=== PATIENT | male | born 1975 | race African-American/Black ===

== ENCOUNTER 2017-08-02 07:55 | Inpatient (IN) | payer OTHER ==
[~2017-08-02] VITALS: Ht 175.3 cm; Wt 136.1 kg
[~2017-08-02 07:55] MED LIST: ABILIFY5 MG PO; CITALOPRAM HBR20 MG PO; HUMALOG100 UNITS/ SC; LANTUS100 UNITS/ SC; LISINOPRIL10 MG PO; METFORMIN HCL500 MG PO
--- OUTSIDE RECORDS SUMMARY | 2017-08-02 07:58 | XMS REPORT | Clinical Summary ---
Author Author [facility] Address Unknown Phone Unavailable Care Team Providers Care Beam Builder Name Role Phone Meng Price MD PCP Unavailable Allergies Active Allergy Reactions Severity Noted Date Comments Rivaroxaban 03/28/2017 Current Medications Prescription Sig. Disp. Refills Start End Date Status Date cefdinir (OMNICEF) 300 MG Take 1 capsule (300 mg 6 capsule 0 03/28/20 03/31/20 capsule total) by mouth 2 (two) 17 17 times a day for 3 days. cefdinir (OMNICEF) 300 MG Take 1 capsule (300 mg 20 capsule 0 04/26/19 capsule total) by mouth 2 (two) 17 18 times a day for 10 days. tamsulosin (FLOMAX) 0.4 Take 1 capsule (0.4 mg 7 capsule 0 04/18/20 04/25/19 mg capsule,extended total) by mouth daily for 17 18 release 24hr 7 days. Active Problems Not on file Encounters Date Type Specialty Care Team Description 04/18/2017 Emergency Emergency Medicine Rehrer, Kasi Fournier, Urinary retention (Primary Dx); Hypertension, unspecified type 04/16/2017 Emergency Emergency Medicine Adams Tabor, Acute urinary retention DO (Primary Dx); Essential hypertension; Type 2 diabetes mellitus with hyperglycemia, unspecified mcfp insulin use status; Urinary tract infection in male 03/28/2017 Emergency Emergency Medicine Stephen Sutherland MD Acute cystitis with hematuria (Primary Dx); Hypertensive emergency; Dysuria; Urine retention; Controlled type 2 diabetes mellitus with other specified complication, without long-term current use of insulin; Dehydration; Lower abdominal pain; Tachycardia; Tobacco abuse after 08/01/2016 Social History Tobacco Use Types Packs/Day Years Used Date Current Every Day Smoker Cigarettes Smokeless Tobacco: Never Used Alcohol Use Drinks/Week oz/Week Comments Yes "once or twice a year" Sex Assigned at Date Recorded Not on file Last Filed Vital Signs Vital Sign Reading Time Taken Blood Pressure 189/100 04/18/2017 2:41 PM [employer] Pulse 99 04/18/2017 2:41 PM [employer] Temperature 35.6 C (96.1 F) 04/18/2017 2:41 PM [employer] Respiratory Rate 20 04/18/2017 2:41 PM [employer] Oxygen Saturation 97% 04/18/2017 2:41 PM [employer] Inhaled Oxygen - - Concentration Weight - - Height 177.8 cm (5' 10") 04/18/2017 10:56 AM [employer] Body Mass Index - - Plan of Treatment Health Maintenance Due Date Last Done Comments FOOT EXAM 12/11/1983 OPHTHALMOLOGY EXAM 12/11/1983 URINE MICROALBUMIN 12/11/1983 INFLUENZA VACCINE 11/18/2017 Results * Gram stain (04/18/2017 1:37 PM) Only the most recent of 3 results within the time period is included. Component Value Ref Range Gram stain result Few WBC's No organisms seen Comment: Specimen Information Specimen Source: Urine Specimen Site: See UA Specimen Performing Laboratory Urine [facility] DEPARTMENT OF PATHOLOGY AND GENOMIC MEDICINE [address] [place] [address] * Urine culture (04/18/2017 1:37 PM) Only the most recent of 3 results within the time period is included. Component Value Ref Range Urine culture isolate Mixed Gram positive zen 10-3 cfu/ml (A) Comment: Specimen Information Specimen Source: Urine Specimen Site: See UA Specimen Performing Laboratory Urine [facility] DEPARTMENT OF PATHOLOGY AND GENOMIC MEDICINE [address] [place] [address] * Urinalysis screen and microscopy, with reflex to culture (04/18/2017 12:48 PM) Only the most recent of 3 results within the time period is included. Component Value Ref Range Specimen site Catheterized Color, UA Yellow Appearance, UA Clear Specific gravity, UA 1.023 1.001 - 1.035 pH, UA 7.0 5.0 - 8.5 Protein, UA Negative Negative Glucose, UA 3+ (A) Negative Ketones, UA Negative Negative Bilirubin, UA Negative Negative Blood, UA Negative Negative Nitrite, UA Negative Negative Urobilinogen, UA <2.0 <2.0 Leukocyte esterase, UA Trace (A) Negative Epithelial cells, UA 3 /HPF WBC, UA 16 (H) 0 - 1 /HPF RBC, UA 1 0 - 1 /HPF Bacteria, UA Few None seen Yeast, UA None seen Yeast with pseudohyphae, None seen UA Specimen Performing Laboratory Urine [facility] DEPARTMENT OF PATHOLOGY AND GENOMIC MEDICINE [address] [place] [address] * Estimated GFR (04/18/2017 12:10 PM) Only the most recent of 3 results within the time period is included. Component Value Ref Range GFR Non Af Amer >90 mL/min/1.73 m2 GFR Af Amer >90 mL/min/1.73 m2 Comment: Chronic kidney disease: <60 mL/min/1.73m2 Kidney failure: <15 mL/min/1.73m2 The estimated GFR is calculated from the IDMS-traceable Modification of Diet in Renal Disease Equation. The accuracy of the calculation is poor when the creatinine is normal. Calculated values >90 mL/min/1.73m2 are not reported. This equation has not been validated in children (<18 years), women, the elderly (>70 years), or ethnic groups other than Caucasians and Americans. Specimen Performing Laboratory Plasma specimen [facility] DEPARTMENT OF PATHOLOGY AND GENOMIC MEDICINE [address] [place] [address] * CBC with platelet and differential (04/18/2017 12:10 PM) Only the most recent of 3 results within the time period is included. Component Value Ref Range WBC 8.04 4.50 - 11.00 k/uL RBC 4.56 4.40 - 6.00 m/uL HGB 12.9 (L) 14.0 - 18.0 g/dL HCT 39.6 (L) 41.0 - 51.0 % MCV 86.8 82.0 - 100.0 fL MCH 28.3 27.0 - 34.0 pg MCHC 32.6 31.0 - 37.0 g/dL RDW - SD 41.4 37.0 - 55.0 fL MPV 10.4 8.8 - 13.2 fL Platelet count 257 150 - 400 k/uL Nucleated RBC 0.00 /100 WBC Neutrophils 54.3 39.0 - 69.0 % Lymphocytes 31.8 25.0 - 45.0 % Monocytes 9.5 0.0 - 10.0 % Eosinophils 3.7 0.0 - 5.0 % Basophils 0.5 0.0 - 1.0 % Immature granulocytes 0.2Comment: "Immature granulocytes" 0.0 - 1.0 % (promyelocytes, myelocytes, metamyelocytes) Specimen Performing Laboratory Blood [facility] DEPARTMENT OF PATHOLOGY AND GENOMIC MEDICINE [address] [place] [address] * Basic metabolic panel (04/18/2017 12:10 PM) Component Value Ref Range Sodium 142 135 - 148 mEq/L Potassium 4.1 3.5 - 5.0 mEq/L Chloride 100 98 - 112 mEq/L CO2 28 24 - 31 mEq/L Anion gap 14 7 - 15 mEq/L Comment: Starting from July , anion gap calculation no longer incorporates potassium. Please note the change. BUN 12 6 - 20 mg/dL Creatinine 0.8 0.7 - 1.2 mg/dL Glucose 79 65 - 99 mg/dL Calcium 9.5 8.3 - 10.2 mg/dL Specimen Performing Laboratory Plasma specimen [facility] DEPARTMENT OF PATHOLOGY AND GENOMIC MEDICINE [address] [place] [address] * POC glucose (04/16/2017 5:53 AM) Only the most recent of 2 results within the time period is included. Component Value Ref Range POC glucose 214 (H) 65 - 99 mg/dL Comment: [facility] Notified RN Meter ID: [id number] Outside Sales: Andrey Hartdante Specimen Performing Laboratory Blood [facility] DEPARTMENT OF PATHOLOGY AND GENOMIC MEDICINE [address] [place] [address] * Troponin (04/16/2017 1:25 AM) Component Value Ref Range Troponin <0.30 0.00 - 0.30 ng/mL Comment: 0.30 - 1.49 ng/ml May indicate increased risk of acute coronary syndrome. >=1.5 ng/ml Consistent with acute myocardial infarction. The diagnostic value of a single normal or non-diagnostic result is questionable. Serial samples at 2-6 hour intervals are required to rule out acute myocardial injury. Specimen Performing Laboratory Plasma specimen [facility] DEPARTMENT OF PATHOLOGY AND GENOMIC MEDICINE [address] [place] [address] Narrative ___GLU_ results called to and read back by KENIA LOVETT\\ER(name/location) at ____ 04/16/201703:10 ___ (date/time) by LSB_. * Partial thromboplastin time, activated (04/16/2017 1:25 AM) Only the most recent of 2 results within the time period is included. Component Value Ref Range PTT 30.2 23.0 - 36.0 sec Comment: PTT therapeutic range for unfractionated heparin is 61.0-112.0 seconds which corresponds to Anti-Xa 0.3-0.7 U/ml. Specimen Performing Laboratory Blood [facility] DEPARTMENT OF PATHOLOGY AND GENOMIC MEDICINE [address] [place] [address] * Prothrombin time with INR (04/16/2017 1:25 AM) Only the most recent of 2 results within the time period is included. Component Value Ref Range Prothrombin time 12.5 12.0 - 15.0 sec INR 0.9 Comment: The International Normalized Ratio (INR) is a therapeutic monitoring tool for patients who are stable on oral anticoagulant therapy. An INR of 2.0-3.0 is suggested for deep vein thrombosis/pulmonary embolism. Specimen Performing Laboratory Blood [facility] DEPARTMENT OF PATHOLOGY AND GENOMIC MEDICINE [address] [place] [address] * B natriuretic peptide (04/16/2017 1:25 AM) Component Value Ref Range BNP 39 0 - 100 pg/mL Specimen Performing Laboratory Blood [facility] DEPARTMENT OF PATHOLOGY AND [facility] MEDICINE [address] [place] [address] * Comprehensive metabolic panel (04/16/2017 1:25 AM) Only the most recent of 2 results within the time period is included. Component Value Ref Range Sodium 136 135 - 148 mEq/L Potassium 4.2 3.5 - 5.0 mEq/L Chloride 98 98 - 112 mEq/L CO2 22 (L) 24 - 31 mEq/L Anion gap 16 (H) 7 - 15 mEq/L Comment: Starting from July , anion gap calculation no longer incorporates potassium. Please note the change. BUN 14 6 - 20 mg/dL Creatinine 1.0 0.7 - 1.2 mg/dL Glucose 526 (HH) 65 - 99 mg/dL Calcium 9.0 8.3 - 10.2 mg/dL Protein 7.1 6.3 - 8.3 g/dL Comment: 4.6-7.0 g/dL 1 week 4.4-7.6 g/dL 7 months-1year 5.1-7.3 g/dL 1-2 years 5.6-7.5 g/dL >3 years 6.0-8.0 g/dL 18-150 6.3-8.3 g/dL Albumin 3.3 (L) 3.5 - 5.0 g/dL A/G ratio 0.9 0.7 - 3.8 Alkaline phosphatase 108 40 - 129 U/L AST 25 10 - 50 U/L ALT 29 5 - 50 U/L Total bilirubin <0.2 0.0 - 1.2 mg/dL Specimen Performing Laboratory Plasma specimen [facility] DEPARTMENT OF PATHOLOGY AND GENOMIC MEDICINE [address] [place] [address] * GC By ProbeTec (03/28/2017 11:15 AM) Component Value Ref Range GC, ProbeTec Negative for Neisseria gonorrhoeae. Comment: Specimen Information Specimen Source: Urine Specimen Site: Midstream [facility] DEPARTMENT [place] [address] * Chlamydia by ProbeTec (03/28/2017 11:15 AM) Component Value Ref Range Chlamydia, ProbeTec Negative for Chlamydia trachomatis. Comment: Specimen Information Specimen Source: Urine Specimen Site: Midstream Specimen Performing [facility] DEPARTMENT OF PATHOLOGY AND [facility] MEDICINE [address] [place] [address] * CT Renal Stone Protocol (03/28/2017 10:20 AM) Specimen Performing [facility] [address] [place] [address] Narrative EXAMINATION:CT RENAL STONE PROTOCOL CLINICAL HISTORY:urinary retention and pain and hx of nephrolithiasis TECHNIQUE:Multiple axial images of the abdomen and pelvis were obtained without intravenous administration of iodinated contrast. Sagittal and coronal computerized reformatted images were also obtained. The lack of intravenous contrast reduces the sensitivity of detecting solid organ disease. COMPARISON:None. IMPRESSION: 1.Both kidneys are normal in morphology. There is no evidence of hydronephrosis or nephrolithiasis. The ureters and bladder are unremarkable. No bladder distention or wall thickening. No stones are seen within the bladder. The prostate is unremarkable. 2.No dilated loops of large or small bowel. No intraperitoneal free air or free fluid. The appendix is normal. 3.A calcified granuloma seen within the right lung base. Lung bases are otherwise clear. The cardiac size is normal. No pericardial effusion. 4.Mild fatty infiltration of the liver is noted. Remaining noncontrast evaluation of the liver is grossly unremarkable. The gallbladder is unremarkable. No gallstones are seen. Common bile duct is unremarkable. 5.The pancreas, spleen, and adrenals are unremarkable. 6.The abdominal aorta is normal in caliber. 7.No abdominal or pelvic lymphadenopathy. 8.The bones are unremarkable. All CT images were acquired using low-dose technique with automated exposure control and/or iterative reconstruction. [id number] Procedure Note [facility], Radiology Results Incoming - 03/28/2017 10:26 AM [employer] EXAMINATION: CT RENAL STONE PROTOCOL CLINICAL HISTORY: urinary retention and pain and hx of nephrolithiasis TECHNIQUE: Multiple axial images of the abdomen and pelvis were obtained without intravenous administration of iodinated contrast. Sagittal and coronal computerized reformatted images were also obtained. The lack of intravenous contrast reduces the sensitivity of detecting solid organ disease. COMPARISON: None. IMPRESSION: 1. Both kidneys are normal in morphology. There is no evidence of hydronephrosis or nephrolithiasis. The ureters and bladder are unremarkable. No bladder distention or wall thickening. No stones are seen within the bladder. The prostate is unremarkable. 2. No dilated loops of large or small bowel. No intraperitoneal free air or free fluid. The appendix is normal. 3. A calcified granuloma seen within the right lung base. Lung bases are otherwise clear. The cardiac size is normal. No pericardial effusion. 4. Mild fatty infiltration of the liver is noted. Remaining noncontrast evaluation of the liver is grossly unremarkable. The gallbladder is unremarkable. No gallstones are seen. Common bile duct is unremarkable. 5. The pancreas, spleen, and adrenals are unremarkable. 6. The abdominal aorta is normal in caliber. 7. No abdominal or pelvic lymphadenopathy. 8. The bones are unremarkable. All CT images were acquired using low-dose technique with automated exposure control and/or iterative reconstruction. [facility]-[id number] * Magnesium level (03/28/2017 9:50 AM) Component Value Ref Range Magnesium 1.8 1.6 - 2.6 mg/dL Specimen Performing Laboratory Plasma specimen [facility] DEPARTMENT OF PATHOLOGY AND GENOMIC MEDICINE [address] [place] [address] after 08/01/2016 Insurance Payer Benefit Subscriber ID Type Phone Address Plan / Group AETNA AETNA xxxxxxxxxx HMO HMO,POS,EP O, MC/EC Home: [address] [place], [place] [phone] [place] [address]
--- OUTSIDE RECORDS SUMMARY | 2017-08-02 09:31 | XMS REPORT | Clinical Summary ---
Author Author [facility] Address Unknown Phone Unavailable Care Team Providers Care Fox Raiser Name Role Phone Meng Price MD PCP [...] Type 2 diabetes mellitus with hyperglycemia, unspecified senior care insulin use status; Urinary tract infection in [...] Taken Blood Pressure 189/100 04/18/2017 2:41 PM [employer] Pulse 99 04/18/2017 2:41 PM [employer] Temperature 35.6 C (96.1 F) 04/18/2017 2:41 PM [employer] Respiratory Rate 20 04/18/2017 2:41 PM [employer] Oxygen Saturation 97% 04/18/2017 2:41 PM [employer] Inhaled Oxygen - - Concentration Weight - - Height 177.8 cm (5' 10") 04/18/2017 10:56 AM [employer] Body Mass Index - - Plan of [...] Site: See UA Specimen Performing Laboratory Urine [facility] DEPARTMENT OF PATHOLOGY AND GENOMIC MEDICINE [address] [place] [address] * Urine culture (04/18/2017 1:37 PM) Only the most recent of 3 results within the time period is included. Component Value Ref Range Urine culture isolate Mixed Gram positive zen 10-3 cfu/ml (A) Comment: Specimen Information Specimen Source: Urine Specimen Site: See UA Specimen Performing Laboratory Urine [facility] DEPARTMENT OF PATHOLOGY AND GENOMIC MEDICINE [address] [place] [address] * Urinalysis screen and microscopy, with reflex [...] None seen UA Specimen Performing Laboratory Urine [facility] DEPARTMENT OF PATHOLOGY AND GENOMIC MEDICINE [address] [place] [address] * Estimated GFR (04/18/2017 12:10 PM) Only [...] and Americans. Specimen Performing Laboratory Plasma specimen [facility] DEPARTMENT OF PATHOLOGY AND GENOMIC MEDICINE [address] [place] [address] * CBC with platelet and differential (04/18/2017 [...] (promyelocytes, myelocytes, metamyelocytes) Specimen Performing Laboratory Blood [facility] DEPARTMENT OF PATHOLOGY AND GENOMIC MEDICINE [address] [place] [address] * Basic metabolic panel (04/18/2017 12:10 PM) [...] 10.2 mg/dL Specimen Performing Laboratory Plasma specimen [facility] DEPARTMENT OF PATHOLOGY AND GENOMIC MEDICINE [address] [place] [address] * POC glucose (04/16/2017 5:53 AM) Only the most recent of 2 results within the time period is included. Component Value Ref Range POC glucose 214 (H) 65 - 99 mg/dL Comment: [facility] Notified RN Meter ID: [id number] Mold Capper: Andrey Hartdante Specimen Performing Laboratory Blood [facility] DEPARTMENT OF PATHOLOGY AND GENOMIC MEDICINE [address] [place] [address] * Troponin (04/16/2017 1:25 AM) Component Value [...] myocardial injury. Specimen Performing Laboratory Plasma specimen [facility] DEPARTMENT OF PATHOLOGY AND GENOMIC MEDICINE [address] [place] [address] Narrative ___GLU_ results called to and read [...] Anti-Xa 0.3-0.7 U/ml. Specimen Performing Laboratory Blood [facility] DEPARTMENT OF PATHOLOGY AND GENOMIC MEDICINE [address] [place] [address] * Prothrombin time with INR (04/16/2017 1:25 [...] vein thrombosis/pulmonary embolism. Specimen Performing Laboratory Blood [facility] DEPARTMENT OF PATHOLOGY AND GENOMIC MEDICINE [address] [place] [address] * B natriuretic peptide (04/16/2017 1:25 AM) Component Value Ref Range BNP 39 0 - 100 pg/mL Specimen Performing Laboratory Blood [facility] DEPARTMENT OF PATHOLOGY AND [facility] MEDICINE [address] [place] [address] * Comprehensive metabolic panel (04/16/2017 1:25 AM) [...] 1.2 mg/dL Specimen Performing Laboratory Plasma specimen [facility] DEPARTMENT OF PATHOLOGY AND GENOMIC MEDICINE [address] [place] [address] * GC By ProbeTec (03/28/2017 11:15 AM) Component Value Ref Range GC, ProbeTec Negative for Neisseria gonorrhoeae. Comment: Specimen Information Specimen Source: Urine Specimen Site: Midstream [facility] [place] [address] * Chlamydia by ProbeTec (03/28/2017 11:15 AM) Component Value Ref Range Chlamydia, ProbeTec Negative for Chlamydia trachomatis. Comment: Specimen Information Specimen Source: Urine Specimen Site: Midstream [facility] DEPARTMENT OF PATHOLOGY AND [facility] MEDICINE [address] [place] [address] * CT Renal Stone Protocol (03/28/2017 10:20 AM) Specimen Performing Laboratory [facility] [address] [place] [address] Narrative EXAMINATION:CT RENAL STONE PROTOCOL CLINICAL HISTORY:urinary [...] with automated exposure control and/or iterative reconstruction. [id number] Procedure Note [facility], Radiology Results Incoming - 03/28/2017 10:26 AM [employer] EXAMINATION: CT RENAL STONE PROTOCOL CLINICAL HISTORY: [...] with automated exposure control and/or iterative reconstruction. [facility]-[id number] * Magnesium level (03/28/2017 9:50 AM) Component Value Ref Range Magnesium 1.8 1.6 - 2.6 mg/dL Specimen Performing Laboratory Plasma specimen [facility] DEPARTMENT OF PATHOLOGY AND GENOMIC MEDICINE [address] [place] [address] after 08/01/2016 Insurance Payer Benefit Subscriber ID Type Phone Address Plan / Group AETNA AETNA xxxxxxxxxx HMO HMO,POS,EP O, MC/EC Home: [address] [place], [place] [phone] [place] [address]
[2017-08-02 10:07] LABS: BASOPHILS # (AUTO) 0.1 (0.0-0.1); BASOPHILS % 0.6 % (0.0-1.0); EOSINOPHILS # (AUTO) 0.3 (0.0-0.4); EOSINOPHILS % 3.7 % (0.0-6.0); HEMATOCRIT 40.8 % (38.2-49.6); HEMOGLOBIN 13.6 g/dL (14.0-18.0); LYMPHOCYTES # (AUTO) 1.8 (1.0-3.2); LYMPHOCYTES % 20.9 % (18.0-39.1); MEAN CORPUSCULAR HEMOGLOBIN 28.6 pg (28-32); MEAN CORPUSCULAR HGB CONC 33.3 g/dL (31-35); MEAN CORPUSCULAR VOLUME 85.7 fL (81-99); MONOCYTES # (AUTO) 0.5 (0.2-0.8); NEUTROPHILS # (AUTO) 5.9 (2.1-6.9); NEUTROPHILS % 68.4 % (38.7-80.0); PLATELET COUNT 247 x10e3/uL (140-360); RED BLOOD COUNT 4.76 x10e6/uL (4.3-5.7); RED CELL DISTRIBUTION WIDTH 13.1 % (11.7-14.4)
[2017-08-02 10:19] LABS: INR 1.05; PROTHROMBIN TIME 12.9 seconds (11.9-14.5)
[2017-08-02 10:20] LABS: PARTIAL THROMBOPLASTIN TIME 31.7 seconds (23.8-35.5)
[2017-08-02 10:23] LABS: ANION GAP 16.8 mmol/L (8-16); BLOOD UREA NITROGEN 14 mg/dL (7-26); BUN/CREATININE RATIO 14 (6-25); CALCIUM 8.9 mg/dL (8.4-10.2); CARBON DIOXIDE 25 mmol/L (22-29); CHLORIDE 99 mmol/L (98-107); CREATININE, SERUM 1.01 mg/dL (0.72-1.25); EST GLOMERULAR FILTRATION RATE > 60 ML/MIN (60-); GLUCOSE 125 mg/dL (74-118); POTASSIUM 4.8 mmol/L (3.5-5.1); SODIUM 136 mmol/L (136-145)
[2017-08-02 10:39] LABS: CLARITY,URINE SL CLOUDY (CLEAR); COLOR,URINE YELLOW (YELLOW)
[2017-08-02 10:40] LABS: BILIRUBIN,URINE NEGATIVE (NEGATIVE); KETONES,URINE NEGATIVE (NEGATIVE); LEUKOCYTE ESTERASE ,URINE TRACE (NEGATIVE); NITRITE,URINE NEGATIVE (NEGATIVE); PROTEIN,URINE DIPSTICK NEGATIVE (NEGATIVE); URINE UROBILINOGEN 0.2 mg/dL (0.2 - 1)
[2017-08-02 10:41] LABS: BACTERIA,URINE MODERATE /HPF; EPITHELIAL CELLS,URINE FEW /LPF; RBC,URINE 21-50 /HPF (0-5)
[2017-08-02] MEDS ORDERED: SODIUM CHLORIDE FLUSH 10 ML SYR INJ PRN (11:30)
[2017-08-02] MEDS: CEFTRIAXONE SOD 1 GM VIAL IV SCH (11:30)
--- OUTSIDE RECORDS SUMMARY | 2017-08-02 11:46 | XMS REPORT | Clinical Summary ---
Author Author [facility] Address Unknown Phone Unavailable Care Team Providers Care Insurance Marketing Rep Name Role Phone Meng Price MD PCP [...] Type 2 diabetes mellitus with hyperglycemia, unspecified jail insulin use status; Urinary tract infection in [...] Taken Blood Pressure 189/100 04/18/2017 2:41 PM DAY TRADER Pulse 99 04/18/2017 2:41 PM DAY TRADER Temperature 35.6 C (96.1 F) 04/18/2017 2:41 PM DAY TRADER Respiratory Rate 20 04/18/2017 2:41 PM DAY TRADER Oxygen Saturation 97% 04/18/2017 2:41 PM DAY TRADER Inhaled Oxygen - - Concentration Weight - - Height 177.8 cm (5' 10") 04/18/2017 10:56 AM DAY TRADER Body Mass Index - - Plan of [...] Site: See UA Specimen Performing Laboratory Urine [facility] DEPARTMENT OF PATHOLOGY AND GENOMIC MEDICINE [address] [place] [address] * Urine culture (04/18/2017 1:37 PM) Only the most recent of 3 results within the time period is included. Component Value Ref Range Urine culture isolate Mixed Gram positive zen 10-3 cfu/ml (A) Comment: Specimen Information Specimen Source: Urine Specimen Site: See UA Specimen Performing Laboratory Urine [facility] DEPARTMENT OF PATHOLOGY AND GENOMIC MEDICINE [address] [place] [address] * Urinalysis screen and microscopy, with reflex [...] None seen UA Specimen Performing Laboratory Urine [facility] DEPARTMENT OF PATHOLOGY AND GENOMIC MEDICINE [address] [place] [address] * Estimated GFR (04/18/2017 12:10 PM) Only [...] and Americans. Specimen Performing Laboratory Plasma specimen [facility] DEPARTMENT OF PATHOLOGY AND GENOMIC MEDICINE [address] [place] [id number] * CBC with platelet and differential (04/18/2017 [...] (promyelocytes, myelocytes, metamyelocytes) Specimen Performing Laboratory Blood [facility] DEPARTMENT OF PATHOLOGY AND GENOMIC MEDICINE [address] [place] [address] * Basic metabolic panel (04/18/2017 12:10 PM) [...] 10.2 mg/dL Specimen Performing Laboratory Plasma specimen [facility] DEPARTMENT OF PATHOLOGY AND GENOMIC MEDICINE [address] [place] [address] * POC glucose (04/16/2017 5:53 AM) Only the most recent of 2 results within the time period is included. Component Value Ref Range POC glucose 214 (H) 65 - 99 mg/dL Comment: [facility], [facility] Notified RN Meter ID: [id number] Stereotype Finisher: Andrey Hartdante Specimen Performing Laboratory Blood [facility] DEPARTMENT OF PATHOLOGY AND GENOMIC MEDICINE [address] [place] [address] * Troponin (04/16/2017 1:25 AM) Component Value [...] myocardial injury. Specimen Performing Laboratory Plasma specimen [facility] DEPARTMENT OF PATHOLOGY AND GENOMIC MEDICINE [address] [place] [address] Narrative ___GLU_ results called to and read [...] Anti-Xa 0.3-0.7 U/ml. Specimen Performing Laboratory Blood [facility] DEPARTMENT OF PATHOLOGY AND GENOMIC MEDICINE [address] [place] [id number] * Prothrombin time with INR (04/16/2017 1:25 [...] vein thrombosis/pulmonary embolism. Specimen Performing Laboratory Blood [facility] DEPARTMENT OF PATHOLOGY AND GENOMIC MEDICINE [address] [place] [id number] * B natriuretic peptide (04/16/2017 1:25 AM) Component Value Ref Range BNP 39 0 - 100 pg/mL Specimen Performing Laboratory Blood [facility] DEPARTMENT OF PATHOLOGY AND [facility] [address] [place] [id number] * Comprehensive metabolic panel (04/16/2017 1:25 AM) [...] 1.2 mg/dL Specimen Performing Laboratory Plasma specimen [facility] DEPARTMENT OF PATHOLOGY AND GENOMIC MEDICINE [address] [place] [address] * GC By [employer] (03/28/2017 11:15 AM) Component Value Ref Range GC, [employer] Negative for Neisseria gonorrhoeae. Comment: Specimen Information Specimen Source: Urine Specimen Site: Midstream [facility] [place] [address] * Chlamydia by [employer] (03/28/2017 11:15 AM) Component Value Ref Range Chlamydia, [employer] Negative for Chlamydia trachomatis. Comment: Specimen Information Specimen Source: Urine Specimen Site: Midstream [facility]forming [facility] DEPARTMENT OF PATHOLOGY AND [facility] [address] [place] [address] * CT Renal Stone Protocol (03/28/2017 10:20 AM) Specimen Performing [facility] [address] [place] [address] Narrative EXAMINATION:CT RENAL STONE PROTOCOL CLINICAL HISTORY:urinary [...] with automated exposure control and/or iterative reconstruction. [id number] Procedure Note [facility], Radiology Results Incoming - 03/28/2017 10:26 AM DAY TRADER EXAMINATION: CT RENAL STONE PROTOCOL CLINICAL HISTORY: [...] with automated exposure control and/or iterative reconstruction. [id number] * Magnesium level (03/28/2017 9:50 AM) Component Value Ref Range Magnesium 1.8 1.6 - 2.6 mg/dL Specimen Performing Laboratory Plasma specimen [facility] DEPARTMENT OF PATHOLOGY AND GENOMIC MEDICINE [address] [place] [address] after 08/01/2016 Insurance Payer Benefit Subscriber ID Type Phone Address Plan / Group AETNA AETNA xxxxxxxxxx HMO HMO,[id number] O, MC/EC Home: [address] [place], [place] [phone] [place] [address]
[2017-08-02] MEDS ORDERED: SERTRALINE HCL50 MG (15:50)
[2017-08-02] MEDS ORDERED: LISINOPRIL40 MG (15:50)
[2017-08-02] MEDS ORDERED: CRESTOR40 MG (15:50)
[2017-08-02] MEDS ORDERED: VITAMIN D250000 UNIT (15:50)
[2017-08-02] MEDS ORDERED: DIVALPROEX SOD125 M1 (15:50)
[2017-08-02] MEDS ORDERED: LOSARTAN-HCTZ1 EAC1 (15:50)
[2017-08-02] MEDS ORDERED: TAMSULOSIN HCL0.4 MG (15:50)
[2017-08-02] MEDS ORDERED: BASAGLAR (15:50)
[2017-08-02] MEDS ORDERED: METFORMIN HCL1000 MG (15:50)
[2017-08-02] MEDS ORDERED: QUETIAPINE FUM300 MG (15:50)
[2017-08-02] MEDS ORDERED: NOVOLOG100 UNITS1 (15:50)
[2017-08-02] MEDS: MORPHINE SULFATE 2 MG/ML SYR IV PRN (17:06)
[2017-08-02] MEDS: ONDANSETRON HCL INJ 2 MG/ML VIAL IV PRN (17:07)
[2017-08-02] MEDS ORDERED: BELLADONNA/OPIUM 60 MG SUPP PR PRN (17:30)
[2017-08-02 17:34] VITALS: BP 106/73
--- NOTE | 2017-08-02 18:01 | Consultation ---
DATE OF CONSULTATION: August 02, 2017 UROLOGY CONSULTATION REASON FOR CONSULTATION: Urinary retention. HISTORY OF PRESENT ILLNESS: Shailesh Ware ., is a 41-year-old man who underwent a hypospadias repair in the in [facility] in [facility]. The patient 2-1/2 years ago underwent cystoscopy with urethral dilation, cystogram and retrograde pyelograms by Dr. De Anda. The patient had not regularly followed up. The patient has had urinary retention, some difficulty urinating and presented to the emergency room. In the emergency room, was able to barely pass a 6-Swedish non-balloon retaining catheter to drain the bladder. The patient denies any fever, chills, nausea, and vomiting. PAST MEDICAL AND SURGICAL HISTORY 1. Surgeries as mentioned above. 2. Status post right elbow ORIF. 3. Hypertension. 4. Diabetes. 5. Hypercholesterolemia. 6. Smoker. 7. Obese. FAMILY HISTORY: Significant for diabetes mellitus. CURRENT MEDICATIONS: See MAR. ALLERGIES: NONE KNOWN. SOCIAL HISTORY: The patient reports smoking of very little amounts. He denies ethanol and drug use. 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 REVIEW OF SYSTEMS: Consistent as per history of present illness, past medical history and otherwise negative for all other systems. PHYSICAL EXAMINATION GENERAL: A healthy-appearing 41-year-old man lying in bed in no apparent distress. VITALS: He is currently afebrile. His vital signs are currently stable. ABDOMEN: Soft, obese, nondistended, and nontender without costovertebral angle tenderness. Kidneys are not palpable. No hepatosplenomegaly. No obvious evidence of hernia. GENITOURINARY: The patient has a male phallus that is circumcised with a hypospadias present. There are scars consistent with previous surgery. There is no sign of infection. For the remaining physical examination systems, please refer to the admission history and physical, as well as the ERT sheet. LABORATORY STUDIES: Urine culture is pending. It is a catheterized specimen. White blood cell count is 8550, hemoglobin 13.6 and platelets 247,000. The patient's creatinine is normal at 1.01. Urinalysis shows 1+ glucose. It shows 21-50 rbcs, 11-20 wbcs, moderate bacteria, and urine culture is pending. No urologically significant radiographic studies were done. ASSESSMENT 1. Severe distal urethral stricture disease. 2. Urinary retention. 3. Hypospadias. 4. Obesity. 5. Anemia. 6. Microhematuria. 7. Urinary tract infection. 8. Smoker. 9. Glycosuria. PLAN 1. Procedure note: With significant difficulty and with utilization of filiforms and followers, I was able to barely dilate the patient's distal urethra to 12-Swedish. The patient would not tolerate any larger sounds at the bedside. I was somehow then able to negotiate an 8-Swedish silicone pediatric catheter into the patient's bladder, and somehow was able to negotiate the catheter all the way to the hub. I filled the balloon with 5 mL of sterile water as that is the balloon capacity according to the writing on the catheter. 2. Will eagerly await the patient's culture and sensitivity. 3. Once we assured the patient is on culture-specific antibiotics, he should return to the operating room for cystoscopy with urethral stricture dilation along with retrograde pyelograms and placement of a large boar Jackson catheter. I instructed the patient that my routine following this is regular daily intermittent catheterizations by the patient with the large boar catheters and with after 2 months of healing, eventual tapering of the catheterization frequency on a very gradual basis. 4. Life-long urological followup is a must. Thank you very much for involving us in the care of your patient. Will be happy to follow him along with you, as well as an outpatient. Job#: [id number] RI cc:ANA LAURA RUTHERFORD MD
[2017-08-02] MEDS: PHENAZOPYRIDINE HCL 100 MG TAB PO SCH (18:31)
[2017-08-02 20:00] VITALS: BP 132/67
[2017-08-02 20:46] VITALS: BP 106/73
[2017-08-02] MEDS ORDERED: NON-FORMULARY MEDICATION (Aripiprazole (Abilify) 5 MG) PO SCH (21:00)
[2017-08-02] MEDS: CITALOPRAM HYDROBROMIDE 20 MG TAB PO SCH (22:47)
[2017-08-02] MEDS: CRESTOR 10MG PO SCH (22:48)
[2017-08-02] MEDS: SERTRALINE HCL 50 MG TAB PO SCH (22:48)
[2017-08-02] MEDS: TAMSULOSIN HCL 0.4 MG CAP PO SCH (22:48)
[2017-08-02] MEDS: HYDROCHLOROTHIAZIDE 25 MG TAB PO SCH (22:48)
[2017-08-02] MEDS: METFORMIN HCL 500 MG TAB PO SCH (22:48)
[2017-08-02] MEDS: DIVALPROEX SODIUM 125 MG TABDR...ER PO SCH (22:48)
[2017-08-02] MEDS: QUETIAPINE FUMARATE 100 MG TAB PO SCH (22:48)
[2017-08-02 22:57] VITALS: BP 106/73
[2017-08-02] MEDS: LOSARTAN POTASSIUM 100 MG TAB PO SCH (23:09)
[2017-08-03] VITALS (8 sets, daily range): BP systolic 99–137; BP diastolic 50–77
[2017-08-03 06:15] LABS: BASOPHILS # (AUTO) 0.1 (0.0-0.1); BASOPHILS % 0.6 % (0.0-1.0); EOSINOPHILS # (AUTO) 0.4 (0.0-0.4); EOSINOPHILS % 4.3 % (0.0-6.0); HEMATOCRIT 37.8 % (38.2-49.6); HEMOGLOBIN 12.2 g/dL (14.0-18.0); LYMPHOCYTES # (AUTO) 2.5 (1.0-3.2); LYMPHOCYTES % 29.5 % (18.0-39.1); MEAN CORPUSCULAR HEMOGLOBIN 28.2 pg (28-32); MEAN CORPUSCULAR HGB CONC 32.3 g/dL (31-35); MEAN CORPUSCULAR VOLUME 87.3 fL (81-99); MONOCYTES # (AUTO) 0.7 (0.2-0.8); MONOCYTES % 8.5 % (4.4-11.3); NEUTROPHILS # (AUTO) 4.8 (2.1-6.9); NEUTROPHILS % 56.9 % (38.7-80.0); PLATELET COUNT 225 x10e3/uL (140-360); RED BLOOD COUNT 4.33 x10e6/uL (4.3-5.7); RED CELL DISTRIBUTION WIDTH 13.2 % (11.7-14.4)
[2017-08-03 07:08] LABS: ANION GAP 12.1 mmol/L (8-16); CALCIUM 8.7 mg/dL (8.4-10.2); CREATININE, SERUM 1.62 mg/dL (0.72-1.25); POTASSIUM 4.1 mmol/L (3.5-5.1)
[2017-08-03] MEDS: PHENAZOPYRIDINE HCL 100 MG TAB PO SCH ×3 (09:43→18:21)
[2017-08-03] MEDS: CITALOPRAM HYDROBROMIDE 20 MG TAB PO SCH (09:43)
[2017-08-03] MEDS: DIVALPROEX SODIUM 125 MG TABDR...ER PO SCH ×2 (09:43→17:24)
[2017-08-03] MEDS: TAMSULOSIN HCL 0.4 MG CAP PO SCH ×2 (09:43→17:24)
[2017-08-03] MEDS: METFORMIN HCL 500 MG TAB PO SCH (10:00)
[2017-08-03] MEDS ORDERED: DEXTROSE 50% SYRINGE 50 ML IV PRN (10:15)
[2017-08-03] MEDS ORDERED: INSULIN DETEMIR 100 UNIT/ML PEN SQ NR (10:30)
[2017-08-03] MEDS: AMPICILLIN SOD 1 GM/NS 50ML 50 ML IV SCH ×2 (10:45→18:21)
[2017-08-03] MEDS: INSULIN LISPRO 100 UNIT/1 ML 3ML VIAL SQ SCH ×3 (12:48→21:20)
[2017-08-03] MEDS: CEFTRIAXONE SOD 1 GM VIAL IV SCH (12:48)
[2017-08-03] MEDS ORDERED: LOPERAMIDE HCL 2 MG CAP PO PRN (14:45)
[2017-08-03] MEDS: MORPHINE SULFATE 2 MG/ML SYR IV PRN ×2 (14:54→19:48)
[2017-08-03] MEDS: ONDANSETRON HCL INJ 2 MG/ML VIAL IV PRN (19:45)
[2017-08-03] MEDS: ARIPIPRAZOLE 5 MG TABLET PO SCH (21:00)
[2017-08-03] MEDS ORDERED: LOSARTAN POTASSIUM 100 MG TAB PO SCH (21:00)
[2017-08-03] MEDS: HYDROCHLOROTHIAZIDE 25 MG TAB PO SCH (21:00)
[2017-08-03] MEDS: CRESTOR 10MG PO SCH (21:00)
[2017-08-03] MEDS: QUETIAPINE FUMARATE 100 MG TAB PO SCH (21:30)
[2017-08-03] MEDS: SERTRALINE HCL 50 MG TAB PO SCH (21:30)
[2017-08-03] MEDS: LOSARTAN POTASSIUM 100 MG TAB PO SCH (21:30)
[2017-08-03] MEDS: INSULIN DETEMIR 100 UNIT/ML PEN SQ SCH (21:30)
[2017-08-04] VITALS (8 sets, daily range): BP systolic 108–120; BP diastolic 51–65
[2017-08-04] MEDS: AMPICILLIN SOD 1 GM/NS 50ML 50 ML IV SCH ×3 (02:22→17:07)
[2017-08-04] MEDS: INSULIN LISPRO 100 UNIT/1 ML 3ML VIAL SQ SCH ×4 (07:30→21:00)
[2017-08-04] MEDS ORDERED: INSULIN DETEMIR 100 UNIT/ML PEN SQ SCH (09:00)
[2017-08-04] MEDS: PHENAZOPYRIDINE HCL 100 MG TAB PO SCH ×3 (09:15→17:08)
[2017-08-04] MEDS: TAMSULOSIN HCL 0.4 MG CAP PO SCH ×2 (09:15→17:07)
[2017-08-04] MEDS: METFORMIN HCL 500 MG TAB PO SCH ×2 (09:15→17:07)
[2017-08-04] MEDS: CITALOPRAM HYDROBROMIDE 20 MG TAB PO SCH (09:15)
[2017-08-04] MEDS: DIVALPROEX SODIUM 125 MG TABDR...ER PO SCH ×2 (09:15→17:07)
[2017-08-04] MEDS: CEFTRIAXONE SOD 1 GM VIAL IV SCH (11:34)
[2017-08-04] MEDS: ARIPIPRAZOLE 5 MG TABLET PO SCH (21:19)
[2017-08-04] MEDS: SERTRALINE HCL 50 MG TAB PO SCH (21:20)
[2017-08-04] MEDS: LOSARTAN POTASSIUM 100 MG TAB PO SCH (21:20)
[2017-08-04] MEDS: HYDROCHLOROTHIAZIDE 25 MG TAB PO SCH (21:20)
[2017-08-04] MEDS: CRESTOR 10MG PO SCH (21:20)
[2017-08-04] MEDS: QUETIAPINE FUMARATE 100 MG TAB PO SCH (21:20)
[2017-08-04] MEDS: INSULIN DETEMIR 100 UNIT/ML PEN SQ SCH (21:21)
[2017-08-05] VITALS: BP 108/56
[2017-08-05 01:12] VITALS: BP 110/51
[2017-08-05] MEDS: AMPICILLIN SOD 1 GM/NS 50ML 50 ML IV SCH (02:11)
[2017-08-05 04:00] VITALS: BP 114/57
[2017-08-05 06:30] LABS: BASOPHILS % 0.6 % (0.0-1.0); EOSINOPHILS # (AUTO) 0.4 (0.0-0.4); EOSINOPHILS % 5.2 % (0.0-6.0); HEMATOCRIT 36.9 % (38.2-49.6); LYMPHOCYTES # (AUTO) 2.4 (1.0-3.2); LYMPHOCYTES % 32.9 % (18.0-39.1); MEAN CORPUSCULAR HEMOGLOBIN 28.2 pg (28-32); MEAN CORPUSCULAR HGB CONC 32.5 g/dL (31-35); MEAN CORPUSCULAR VOLUME 86.6 fL (81-99); MONOCYTES # (AUTO) 0.6 (0.2-0.8); MONOCYTES % 8.2 % (4.4-11.3); NEUTROPHILS # (AUTO) 3.8 (2.1-6.9); NEUTROPHILS % 52.8 % (38.7-80.0); PLATELET COUNT 222 x10e3/uL (140-360); RED BLOOD COUNT 4.26 x10e6/uL (4.3-5.7)
[2017-08-05 07:09] LABS: ANION GAP 12.5 mmol/L (8-16); BLOOD UREA NITROGEN 13 mg/dL (7-26); BUN/CREATININE RATIO 15 (6-25); CALCIUM 8.8 mg/dL (8.4-10.2); CARBON DIOXIDE 28 mmol/L (22-29); CHLORIDE 98 mmol/L (98-107); CREATININE, SERUM 0.86 mg/dL (0.72-1.25); EST GLOMERULAR FILTRATION RATE > 60 ML/MIN (60-); GLUCOSE 153 mg/dL (74-118); POTASSIUM 3.5 mmol/L (3.5-5.1); SODIUM 135 mmol/L (136-145)
[2017-08-05] MEDS: INSULIN LISPRO 100 UNIT/1 ML 3ML VIAL SQ SCH (07:30)
[2017-08-05] MEDS ORDERED: IOPAMIDOL 610MG/1ML 300 MG/ML VIAL IV ONE (07:55)
[2017-08-05] MEDS ORDERED: BELLADONNA/OPIUM 60 MG SUPP PR ONE (07:55)
[2017-08-05 08:00] VITALS: BP 163/82
[2017-08-05] MEDS: METFORMIN HCL 500 MG TAB PO SCH (08:00)
[2017-08-05] MEDS: TAMSULOSIN HCL 0.4 MG CAP PO SCH (09:00)
[2017-08-05] MEDS ORDERED: SEVOFLURANE INHAL SOLN 250 ML PEN BTL ONE (17:00)
[2017-08-05] MEDS ORDERED: LIDOCAINE HCL 2% LOCAL INJ 5 ML SDV VIAL INJ ONE (17:00)
[2017-08-05] MEDS ORDERED: ONDANSETRON HCL INJ 2 MG/ML VIAL ONE (17:00)
[2017-08-05] MEDS ORDERED: PHENYLEPHRINE HCL 1% 10 MG/ML VIAL ONE (17:00)
[2017-08-05] MEDS ORDERED: PROPOFOL IV EMULSION 10 MG/ML 20 ML VIAL ONE (17:00)
[2017-08-05] MEDS ORDERED: MIDAZOLAM HCL 2 MG/2 ML VIAL ONE (19:49)
[2017-08-05] MEDS ORDERED: FENTANYL CITRATE/PF 100MCG/2 ML INJ ONE (19:49)
== END 2017-08-05 14:26 | disposition home or self-care (01) | DRG 671 ==
LOC: ER 09:28 → ERHOLD 11:43 → IMCU 12:56 → ERHOLD 12:56 → OBSVTOIN 13:00 → MED/SURG2 16:13
PROVIDERS: ADMIT Internal Medicine; ATTEND Internal Medicine
PROC: 0T7D4ZZ Dilation of Urethra, Percutaneous Endoscopic Approach (ICD-10-PCS; principal; 2017-08-02)
PROC: BT141ZZ Fluoroscopy of Kidneys, Ureters and Bladder using Low Osmolar Contrast (ICD-10-PCS; 2017-08-02)
DX: N35.9 Urethral stricture, unspecified (principal); I13.0 Hypertensive heart and chronic kidney disease with heart failure and stage 1 through stage 4 chronic kidney disease, or unspecified chronic kidney disease; N17.9 Acute kidney failure, unspecified; N39.0 Urinary tract infection, site not specified; Z68.41 Body mass index [BMI] 40.0-44.9, adult; D64.9 Anemia, unspecified; E11.9 Type 2 diabetes mellitus without complications; B95.2 Enterococcus as the cause of diseases classified elsewhere; N18.3 Chronic kidney disease, stage 3 (moderate); R33.9 Retention of urine, unspecified; F17.210 Nicotine dependence, cigarettes, uncomplicated; E66.9 Obesity, unspecified; Q54.9 Hypospadias, unspecified; N13.9 Obstructive and reflux uropathy, unspecified
CPT/HCPCS: 36415; 74420; 80048; 81001; 82948; 85025; 85610; 85730; 87086; 87186; 99284; J0290; J0696; J2001; J2250; J2270; J2370; J2405

== ENCOUNTER 2020-10-30 06:09 | Inpatient (IN) | payer OTHER ==
[~2020-10-30] VITALS: Ht 177.8 cm; Wt 90.7 kg
[~2020-10-30 06:09] MED LIST changes: +BASAGLAR PO; +CRESTOR40 MG; +DIVALPROEX SOD125 M1; +LISINOPRIL40 MG; +LOSARTAN-HCTZ1 EAC1; +METFORMIN HCL1000 MG; +NOVOLOG100 UNITS1; +QUETIAPINE FUM300 MG; +SERTRALINE HCL50 MG; +TAMSULOSIN HCL0.4 MG; +VITAMIN D250000 UNIT
[2020-10-30 07:45] LABS: BASOPHILS % 0.4 % (0.0-1.0); EOSINOPHILS # (AUTO) 0.1 (0.0-0.4); EOSINOPHILS % 1.2 % (0.0-6.0); HEMOGLOBIN 12.8 g/dL (14.0-18.0); LYMPHOCYTES # (AUTO) 1.3 (1.0-3.2); MEAN CORPUSCULAR HEMOGLOBIN 29.9 pg (28-32); MEAN CORPUSCULAR HGB CONC 33.7 g/dL (31-35); MEAN CORPUSCULAR VOLUME 88.8 fL (81-99); MONOCYTES # (AUTO) 0.9 (0.2-0.8); MONOCYTES % 8.5 % (4.4-11.3); NEUTROPHILS # (AUTO) 8.1 (2.1-6.9); NEUTROPHILS % 77.6 % (38.7-80.0); PLATELET COUNT 242 x10e3/uL (140-360); RED BLOOD COUNT 4.28 x10e6/uL (4.3-5.7); RED CELL DISTRIBUTION WIDTH 12.9 % (11.7-14.4)
[2020-10-30 07:49] LABS: CLARITY,URINE CLEAR (CLEAR); COLOR,URINE YELLOW (YELLOW); KETONES,URINE NEGATIVE (NEGATIVE); LEUKOCYTE ESTERASE ,URINE NEGATIVE (NEGATIVE); NITRITE,URINE NEGATIVE (NEGATIVE); PROTEIN,URINE DIPSTICK NEGATIVE (NEGATIVE); URINE UROBILINOGEN 0.2 mg/dL (0.2 - 1)
[2020-10-30 08:22] LABS: BACTERIA,URINE RARE /HPF; EPITHELIAL CELLS,URINE FEW /LPF; WBC,URINE (MAN) 21-50 /HPF (0-5)
[2020-10-30] MEDS ORDERED: PIPERACILLIN/TAZOBACTAM 3.375 GM in SODIUM CHLORIDE 0.9% 50ML 50 ML IV SCH (08:30)
[2020-10-30] MEDS ORDERED: ONDANSETRON HCL INJ 2MG/ML 2ML 2 MG/ML VIAL IV PRN (08:30)
[2020-10-30] MEDS ORDERED: MORPHINE SULFATE INJ 4 MG/ML INJ 1ML IV PRN (08:30)
[2020-10-30 08:44] LABS: INR 0.88; PROTHROMBIN TIME 12.5 seconds (11.9-14.5)
[2020-10-30 08:45] LABS: ALBUMIN 3.8 g/dL (3.5-5.0); ALBUMIN/GLOBULIN RATIO 1.1 (0.8-2.0); ANION GAP 11.1 mmol/L (8-16); CALCIUM 8.7 mg/dL (8.4-10.2); CREATININE, SERUM 1.44 mg/dL (0.72-1.25); POTASSIUM 4.1 mmol/L (3.5-5.1)
[2020-10-30] MEDS ORDERED: SODIUM CHLORIDE 0.9% 250ML 250 ML ONE ×2 (09:08→17:05)
[2020-10-30] MEDS ORDERED: LIDOCAINE HCL 1% LOCAL INJ 20 ML VIAL ONE (09:08)
[2020-10-30] MEDS ORDERED: IOPAMIDOL 300MG/ML 100 ML INFUS..BTL IV ONE (09:25)
[2020-10-30] MEDS ORDERED: DEXTROSE 50% SYRINGE 50 ML IV PRN (09:30)
[2020-10-30] MEDS ORDERED: MIDAZOLAM HCL 2 MG/2 ML VIAL ONE (09:46)
[2020-10-30] MEDS ORDERED: FENTANYL CITRATE/PF 100MCG/2 ML INJ ONE (09:47)
[2020-10-30 10:47] LABS: CLARITY,URINE CLEAR (CLEAR); COLOR,URINE YELLOW (YELLOW); KETONES,URINE NEGATIVE (NEGATIVE); LEUKOCYTE ESTERASE ,URINE NEGATIVE (NEGATIVE); NITRITE,URINE NEGATIVE (NEGATIVE); PROTEIN,URINE DIPSTICK NEGATIVE (NEGATIVE); URINE UROBILINOGEN 0.2 mg/dL (0.2 - 1)
[2020-10-30 11:04] LABS: WBC,URINE (MAN) 0-5 /HPF (0-5)
[2020-10-30 11:05] LABS: BACTERIA,URINE RARE /HPF; EPITHELIAL CELLS,URINE RARE /LPF; RBC,URINE >50 /HPF (0-5)
[2020-10-30] MEDS: INSULIN REGULAR, HUMAN 100 UNIT/1 ML SQ SCH ×3 (12:12→20:30)
[2020-10-30 14:45] VITALS: BP 135/78
[2020-10-30 16:04] VITALS: BP 135/78
[2020-10-30] MEDS ORDERED: SEROQUEL100 MG PO (16:24)
[2020-10-30] MEDS ORDERED: VENLAFAXINE HCL75 M2 PO (16:24)
[2020-10-30 16:29] VITALS: BP 135/78
[2020-10-30] MEDS: PIPERACILLIN/TAZOBACTAM 3.375 GM in SODIUM CHLORIDE 0.9% 50ML 50 ML IV SCH ×3 (17:05→23:42)
[2020-10-30] MEDS: QUETIAPINE FUMARATE 100 MG TAB PO SCH (20:29)
[2020-10-30] MEDS: VENLAFAXINE HCL 75 MG CAPCR PO SCH (20:29)
[2020-10-30 21:39] VITALS: BP 135/78
[2020-10-31] VITALS: BP 145/77
[2020-10-31 04:00] VITALS: BP 153/76
[2020-10-31] MEDS: PIPERACILLIN/TAZOBACTAM 3.375 GM in SODIUM CHLORIDE 0.9% 50ML 50 ML IV SCH ×4 (05:55→23:44)
[2020-10-31] MEDS: ACETAMINOPHEN/CODEINE 300MG - 30MG TAB PO PRN ×2 (07:08→22:27)
[2020-10-31] MEDS: INSULIN REGULAR, HUMAN 100 UNIT/1 ML SQ SCH ×4 (07:30→21:08)
[2020-10-31 07:31] VITALS: BP 148/81
[2020-10-31] MEDS: INSULIN GLARGINE 100 UNITS/ML VIAL SQ SCH (08:28)
[2020-10-31 10:58] VITALS: BP 144/78
[2020-10-31] MEDS: QUETIAPINE FUMARATE 100 MG TAB PO SCH (19:49)
[2020-10-31] MEDS: VENLAFAXINE HCL 75 MG CAPCR PO SCH (19:49)
[2020-10-31 20:00] VITALS: BP 152/79
[2020-10-31 22:14] VITALS: BP 152/79
[2020-11-01] VITALS (8 sets, daily range): BP systolic 115–141; BP diastolic 61–83
[2020-11-01] MEDS: PIPERACILLIN/TAZOBACTAM 3.375 GM in SODIUM CHLORIDE 0.9% 50ML 50 ML IV SCH ×4 (06:12→23:05)
[2020-11-01] MEDS: INSULIN REGULAR, HUMAN 100 UNIT/1 ML SQ SCH ×4 (07:30→20:05)
[2020-11-01] MEDS: INSULIN GLARGINE 100 UNITS/ML VIAL SQ SCH (09:00)
[2020-11-01] MEDS ORDERED: SODIUM CHLORIDE 0.9% 250ML 250 ML ONE (11:32)
[2020-11-01] MEDS ORDERED: ONDANSETRON HCL 4 MG ORAL DISINTEGRATING TAB PO PRN (13:30)
[2020-11-01] MEDS: QUETIAPINE FUMARATE 100 MG TAB PO SCH (20:04)
[2020-11-01] MEDS: VENLAFAXINE HCL 75 MG CAPCR PO SCH (20:04)
[2020-11-02] VITALS (9 sets, daily range): BP systolic 113–169; BP diastolic 60–91
[2020-11-02 04:44] LABS: BASOPHILS % 0.6 % (0.0-1.0); EOSINOPHILS # (AUTO) 0.3 (0.0-0.4); HEMATOCRIT 38.7 % (38.2-49.6); HEMOGLOBIN 12.7 g/dL (14.0-18.0); LYMPHOCYTES # (AUTO) 2.7 (1.0-3.2); LYMPHOCYTES % 43.2 % (18.0-39.1); MEAN CORPUSCULAR HEMOGLOBIN 29.7 pg (28-32); MEAN CORPUSCULAR HGB CONC 32.8 g/dL (31-35); MEAN CORPUSCULAR VOLUME 90.6 fL (81-99); MONOCYTES # (AUTO) 0.5 (0.2-0.8); MONOCYTES % 7.7 % (4.4-11.3); NEUTROPHILS # (AUTO) 2.7 (2.1-6.9); NEUTROPHILS % 43.2 % (38.7-80.0); PLATELET COUNT 195 x10e3/uL (140-360); RED BLOOD COUNT 4.27 x10e6/uL (4.3-5.7); RED CELL DISTRIBUTION WIDTH 12.7 % (11.7-14.4)
[2020-11-02] MEDS: PIPERACILLIN/TAZOBACTAM 3.375 GM in SODIUM CHLORIDE 0.9% 50ML 50 ML IV SCH ×4 (05:09→23:01)
[2020-11-02 05:10] LABS: ALBUMIN/GLOBULIN RATIO 0.9 (0.8-2.0); ANION GAP 10.7 mmol/L (8-16); CALCIUM 8.4 mg/dL (8.4-10.2); CREATININE, SERUM 0.97 mg/dL (0.72-1.25); MAGNESIUM 1.8 MG/DL (1.3-2.1); POTASSIUM 3.7 mmol/L (3.5-5.1)
[2020-11-02] MEDS: INSULIN REGULAR, HUMAN 100 UNIT/1 ML SQ SCH ×4 (07:30→20:48)
[2020-11-02] MEDS: INSULIN GLARGINE 100 UNITS/ML VIAL SQ SCH (09:00)
[2020-11-02] MEDS ORDERED: ONDANSETRON HCL INJ 2MG/ML 2ML 2 MG/ML VIAL ONE (12:14)
[2020-11-02] MEDS ORDERED: PROPOFOL IV EMULSION 10 MG/ML 20 ML VIAL ONE (12:14)
[2020-11-02] MEDS ORDERED: LIDOCAINE HCL 2% LOCAL INJ 5 ML SDV VIAL INJ ONE (12:14)
[2020-11-02] MEDS ORDERED: SEVOFLURANE INHAL SOLN 250 ML PEN BTL ONE (12:14)
[2020-11-02] MEDS ORDERED: DEXAMETHASONE SOD PHOS INJ 4 MG/ML VIAL ONE (12:14)
[2020-11-02] MEDS ORDERED: POVIDONE IODINE 0.05% 0.05 % ML PO ONE (12:14)
[2020-11-02] MEDS ORDERED: B&O 60MG R/S 60 MG SUPP PR PRN (13:45)
[2020-11-02] MEDS ORDERED: PHENAZOPYRIDINE HCL 100 MG TAB PO PRN (13:45)
[2020-11-02] MEDS ORDERED: FENTANYL CITRATE/PF 100MCG/2 ML INJ ONE (13:57)
[2020-11-02] MEDS ORDERED: MIDAZOLAM HCL 2 MG/2 ML VIAL ONE (13:57)
[2020-11-02] MEDS ORDERED: B&O 60MG R/S 60 MG SUPP PR ONE (13:58)
[2020-11-02] MEDS ORDERED: IOPAMIDOL 300MG/ML 50ML INFUS..BTL IV ONE (13:58)
[2020-11-02] MEDS: QUETIAPINE FUMARATE 100 MG TAB PO SCH (19:50)
[2020-11-02] MEDS: VENLAFAXINE HCL 75 MG CAPCR PO SCH (19:50)
[2020-11-03] MEDS: PIPERACILLIN/TAZOBACTAM 3.375 GM in SODIUM CHLORIDE 0.9% 50ML 50 ML IV SCH ×2 (05:20→12:27)
[2020-11-03 05:44] VITALS: BP 150/82
[2020-11-03 05:59] LABS: BASOPHILS % 0.3 % (0.0-1.0); EOSINOPHILS # (AUTO) 0.2 (0.0-0.4); EOSINOPHILS % 1.8 % (0.0-6.0); HEMATOCRIT 40.4 % (38.2-49.6); HEMOGLOBIN 13.4 g/dL (14.0-18.0); LYMPHOCYTES # (AUTO) 2.3 (1.0-3.2); LYMPHOCYTES % 25.1 % (18.0-39.1); MEAN CORPUSCULAR HGB CONC 33.2 g/dL (31-35); MEAN CORPUSCULAR VOLUME 90.6 fL (81-99); MONOCYTES # (AUTO) 0.6 (0.2-0.8); MONOCYTES % 6.3 % (4.4-11.3); NEUTROPHILS % 66.2 % (38.7-80.0); PLATELET COUNT 185 x10e3/uL (140-360); RED BLOOD COUNT 4.46 x10e6/uL (4.3-5.7); RED CELL DISTRIBUTION WIDTH 12.5 % (11.7-14.4)
[2020-11-03 06:27] LABS: ANION GAP 13.2 mmol/L (8-16); CALCIUM 8.3 mg/dL (8.4-10.2); CREATININE, SERUM 0.99 mg/dL (0.72-1.25); POTASSIUM 4.2 mmol/L (3.5-5.1)
[2020-11-03] MEDS: INSULIN REGULAR, HUMAN 100 UNIT/1 ML SQ SCH ×2 (07:30→11:58)
[2020-11-03] MEDS: INSULIN GLARGINE 100 UNITS/ML VIAL SQ SCH (08:59)
[2020-11-03 09:16] VITALS: BP 138/77
[2020-11-03 09:17] VITALS: BP 138/77
[2020-11-03 11:51] VITALS: BP 131/79
[2020-11-03] MEDS ORDERED: PENICILLIN V P500 MG PO (14:57)
[2020-11-03] MEDS ORDERED: ACETAMINOPHEN-1 EAC3 PO (14:59)
[2020-11-04] MEDS ORDERED: ERGOCALCIFEROL 50,000 UNIT CAP PO SCH (09:00)
== END 2020-11-03 16:10 | disposition home or self-care (01) | DRG 697 ==
LOC: ER 07:28 → ERHOLD 08:28 → MED/SURG 14:33 → OBSVTOIN 10-31 08:21
PROVIDERS: ADMIT Internal Medicine; ATTEND Internal Medicine
PROC: 0T788ZZ Dilation of Bilateral Ureters, Via Natural or Artificial Opening Endoscopic (ICD-10-PCS; 2020-11-02)
PROC: BT141ZZ Fluoroscopy of Kidneys, Ureters and Bladder using Low Osmolar Contrast (ICD-10-PCS; 2020-11-02)
PROC: 0T7D8ZZ Dilation of Urethra, Via Natural or Artificial Opening Endoscopic (ICD-10-PCS; principal; 2020-11-02 16:00)
DX: N35.919 Unspecified urethral stricture, male, unspecified site (principal); N39.0 Urinary tract infection, site not specified; N17.9 Acute kidney failure, unspecified; I10 Essential (primary) hypertension; E11.9 Type 2 diabetes mellitus without complications; F41.9 Anxiety disorder, unspecified; Q54.9 Hypospadias, unspecified; F31.9 Bipolar disorder, unspecified; E66.9 Obesity, unspecified; Z68.28 Body mass index [BMI] 28.0-28.9, adult; R32 Unspecified urinary incontinence; F17.210 Nicotine dependence, cigarettes, uncomplicated; Z91.19 Patient's noncompliance with other medical treatment and regimen; G47.33 Obstructive sleep apnea (adult) (pediatric); Z79.4 Long term (current) use of insulin
CPT/HCPCS: 36415; 51102; 74420; 74470; 76942; 80048; 80053; 81001; 82948; 83735; 85025; 85610; 85730; 87086; 93005; 96372; 99284; C1758; G0378; J1100; J1815; J1817; J2001; J2250; J2270; J2405; J2543; J3010; J7050; Q9967

== ENCOUNTER 2022-07-08 06:51 | Inpatient (IN) | payer OTHER ==
[~2022-07-08] VITALS: Ht 177.8 cm; Wt 90.7 kg
[~2022-07-08 06:51] MED LIST changes: +ACETAMINOPHEN-1 EAC3 PO; +PENICILLIN V P500 MG PO; +SEROQUEL100 MG PO; +VENLAFAXINE HCL75 M2 PO
[2022-07-08] MEDS ORDERED: SODIUM CHLORIDE 0.9% 1000ML 2,720 ML IV SCH (07:30)
[2022-07-08] MEDS ORDERED: CEFTRIAXONE 1 GM VIAL IV SCH (07:30)
[2022-07-08] MEDS ORDERED: CEFTRIAXONE 2 GM VIAL ONE (07:36)
[2022-07-08 07:42] LABS: BASOPHILS # (AUTO) 0.1 (0.0-0.1); BASOPHILS % 0.5 % (0.0-1.0); EOSINOPHILS % 0.1 % (0.0-6.0); HEMATOCRIT 39.9 % (38.2-49.6); HEMOGLOBIN 13.1 g/dL (14.0-18.0); LYMPHOCYTES # (AUTO) 1.4 (1.0-3.2); LYMPHOCYTES % 7.9 % (18.0-39.1); MEAN CORPUSCULAR HEMOGLOBIN 29.3 pg (28-32); MEAN CORPUSCULAR HGB CONC 32.8 g/dL (31-35); MEAN CORPUSCULAR VOLUME 89.3 fL (81-99); MONOCYTES # (AUTO) 1.8 (0.2-0.8); MONOCYTES % 10.3 % (4.4-11.3); NEUTROPHILS # (AUTO) 14.2 (2.1-6.9); NEUTROPHILS % 80.2 % (38.7-80.0); PLATELET COUNT 213 x10e3/uL (140-360); RED BLOOD COUNT 4.47 x10e6/uL (4.3-5.7); RED CELL DISTRIBUTION WIDTH 13.1 % (11.7-14.4)
[2022-07-08 07:56] LABS: CLARITY,URINE CLOUDY (CLEAR); COLOR,URINE YELLOW (YELLOW)
[2022-07-08 07:59] LABS: LEUKOCYTE ESTERASE ,URINE NEGATIVE (NEGATIVE); NITRITE,URINE POSITIVE (NEGATIVE); PROTEIN,URINE DIPSTICK NEGATIVE (NEGATIVE)
[2022-07-08 08:00] LABS: KETONES,URINE 2+ (NEGATIVE); URINE UROBILINOGEN 0.2 mg/dL (0.2 - 1)
[2022-07-08 08:06] LABS: BACTERIA,URINE MANY /HPF; EPITHELIAL CELLS,URINE RARE /LPF; INR 0.95; PROTHROMBIN TIME 13.2 seconds (11.9-14.5); RBC,URINE 0-5 /HPF (0-5); WBC,URINE (MAN) 21-50 /HPF (0-5)
[2022-07-08 08:07] LABS: PARTIAL THROMBOPLASTIN TIME 34.4 seconds (23.8-35.5)
[2022-07-08 08:15] LABS: ALBUMIN 3.1 g/dL (3.5-5.0); ALBUMIN/GLOBULIN RATIO 0.7 (0.8-2.0); ANION GAP 24.2 mmol/L (8-16); CREATININE, SERUM 1.26 mg/dL (0.72-1.25); POTASSIUM 4.2 mmol/L (3.5-5.1)
[2022-07-08] MEDS ORDERED: Morphine 2mg Syringe 2 MG/ML SYR IV PRN (11:15)
[2022-07-08] MEDS ORDERED: CEFEPIME 2 GM in SODIUM CHLORIDE 0.9% 100 ML IV ONE (11:15)
[2022-07-08] MEDS ORDERED: ONDANSETRON HCL INJ 2MG/ML 2ML 2 MG/ML VIAL IV PRN (11:15)
[2022-07-08] MEDS ORDERED: SODIUM CHLORIDE FLUSH 10 ML SYR INJ PRN (11:15)
[2022-07-08] MEDS ORDERED: Vancomycin IV 2 GM in SODIUM CHLORIDE 0.9% 500ML 500 ML IV ONE (11:30)
[2022-07-08] MEDS ORDERED: SODIUM CHLORIDE 0.9% 250ML 250 ML ONE (16:34)
[2022-07-08] MEDS ORDERED: Vancomycin IV 1 GM VIAL ONE (16:34)
[2022-07-08] MEDS ORDERED: CEFEPIME 2 GM VIAL ONE (16:34)
[2022-07-08] MEDS ORDERED: ACETAMINOPHEN 325 MG TAB ONE (16:54)
[2022-07-08] MEDS ORDERED: ACETAMINOPHEN 325 MG TAB PO ONE (17:00)
[2022-07-08 21:00] VITALS: BP 106/62
[2022-07-08 21:13] VITALS: BP 106/62
[2022-07-08] MEDS ORDERED: METFORMIN HCL1000 MG PO (21:13)
[2022-07-08] MEDS ORDERED: DEXTROSE 50% SYRINGE 50 ML IV PRN (21:30)
[2022-07-08] MEDS: INSULIN LISPRO 100 UNIT/1 ML 3ML VIAL SQ SCH (22:58)
[2022-07-09] VITALS (10 sets, daily range): BP systolic 103–132; BP diastolic 58–69
[2022-07-09] MEDS ORDERED: Vancomycin IV 1 GM in SODIUM CHLORIDE 0.9% 250ML 250 ML IV ONE (04:30)
[2022-07-09 06:08] LABS: BASOPHILS % 0.2 % (0.0-1.0); EOSINOPHILS # (AUTO) 0.1 (0.0-0.4); EOSINOPHILS % 0.5 % (0.0-6.0); HEMATOCRIT 34.7 % (38.2-49.6); HEMOGLOBIN 11.3 g/dL (14.0-18.0); LYMPHOCYTES # (AUTO) 1.4 (1.0-3.2); LYMPHOCYTES % 7.3 % (18.0-39.1); MEAN CORPUSCULAR HEMOGLOBIN 29.4 pg (28-32); MEAN CORPUSCULAR HGB CONC 32.6 g/dL (31-35); MEAN CORPUSCULAR VOLUME 90.4 fL (81-99); MONOCYTES # (AUTO) 1.9 (0.2-0.8); MONOCYTES % 10.2 % (4.4-11.3); NEUTROPHILS % 80.9 % (38.7-80.0); PLATELET COUNT 197 x10e3/uL (140-360); RED BLOOD COUNT 3.84 x10e6/uL (4.3-5.7); RED CELL DISTRIBUTION WIDTH 13.2 % (11.7-14.4)
[2022-07-09] MEDS: ACETAMINOPHEN 325 MG TAB PO PRN (06:14)
[2022-07-09 06:33] LABS: ALBUMIN 2.6 g/dL (3.5-5.0); ALBUMIN/GLOBULIN RATIO 0.7 (0.8-2.0); ANION GAP 18.3 mmol/L (8-16); CALCIUM 8.9 mg/dL (8.4-10.2); CREATININE, SERUM 1.04 mg/dL (0.72-1.25); POTASSIUM 4.3 mmol/L (3.5-5.1)
[2022-07-09] MEDS ORDERED: INSULIN LISPRO 100 UNIT/1 ML 3ML VIAL SQ SCH (07:30)
[2022-07-09] MEDS: INSULIN LISPRO 100 UNIT/1 ML 3ML VIAL SQ SCH ×4 (09:32→21:34)
[2022-07-09] MEDS ORDERED: PHENAZOPYRIDINE HCL 100 MG TAB PO PRN (17:00)
[2022-07-09] MEDS: Vancomycin IV 1 GM in SODIUM CHLORIDE 0.9% 250ML 250 ML IV SCH (18:31)
[2022-07-09] MEDS: VENLAFAXINE HCL 75 MG CAPCR PO SCH (21:20)
[2022-07-09] MEDS: ACYCLOVIR 200 MG CAP PO SCH (21:20)
[2022-07-09] MEDS: QUETIAPINE FUMARATE 100 MG TAB PO SCH (21:20)
[2022-07-10] VITALS (9 sets, daily range): BP systolic 110–131; BP diastolic 69–84
[2022-07-10 05:01] LABS: BASOPHILS # (AUTO) 0.1 (0.0-0.1); BASOPHILS % 0.5 % (0.0-1.0); EOSINOPHILS # (AUTO) 0.2 (0.0-0.4); EOSINOPHILS % 1.6 % (0.0-6.0); HEMATOCRIT 36.5 % (38.2-49.6); HEMOGLOBIN 12.1 g/dL (14.0-18.0); LYMPHOCYTES # (AUTO) 2.1 (1.0-3.2); LYMPHOCYTES % 13.4 % (18.0-39.1); MEAN CORPUSCULAR HEMOGLOBIN 29.5 pg (28-32); MEAN CORPUSCULAR HGB CONC 33.2 g/dL (31-35); MONOCYTES # (AUTO) 1.4 (0.2-0.8); NEUTROPHILS # (AUTO) 11.5 (2.1-6.9); NEUTROPHILS % 74.7 % (38.7-80.0); PLATELET COUNT 238 x10e3/uL (140-360); RED CELL DISTRIBUTION WIDTH 13.2 % (11.7-14.4)
[2022-07-10 06:09] LABS: ALBUMIN 2.6 g/dL (3.5-5.0); ALBUMIN/GLOBULIN RATIO 0.6 (0.8-2.0); ANION GAP 19.8 mmol/L (8-16); CALCIUM 8.8 mg/dL (8.4-10.2); CREATININE, SERUM 0.82 mg/dL (0.72-1.25); POTASSIUM 3.8 mmol/L (3.5-5.1)
[2022-07-10] MEDS: Vancomycin IV 1 GM in SODIUM CHLORIDE 0.9% 250ML 250 ML IV SCH (06:44)
[2022-07-10] MEDS: INSULIN LISPRO 100 UNIT/1 ML 3ML VIAL SQ SCH ×3 (07:30→16:12)
[2022-07-10] MEDS: ACYCLOVIR 200 MG CAP PO SCH ×4 (09:01→22:55)
[2022-07-10] MEDS: CLINDAMYCIN PHOS 900MG/ 50ML 50 ML IV SCH ×2 (13:33→22:55)
[2022-07-10] MEDS ORDERED: ONDANSETRON HCL 4 MG ORAL DISINTEGRATING TAB PO PRN (13:45)
[2022-07-10] MEDS: FLUCONAZOLE 400MG/200ML BAG 200 ML IV SCH (14:26)
[2022-07-10] MEDS: QUETIAPINE FUMARATE 100 MG TAB PO SCH (22:55)
[2022-07-10] MEDS: VENLAFAXINE HCL 75 MG CAPCR PO SCH (22:55)
[2022-07-11] VITALS: BP 131/70
[2022-07-11] MEDS: INSULIN LISPRO 100 UNIT/1 ML 3ML VIAL SQ SCH ×4 (00:37→17:03)
[2022-07-11 05:39] VITALS: BP 145/79
[2022-07-11 05:41] LABS: BASOPHILS # (AUTO) 0.1 (0.0-0.1); BASOPHILS % 0.5 % (0.0-1.0); EOSINOPHILS # (AUTO) 0.3 (0.0-0.4); EOSINOPHILS % 2.7 % (0.0-6.0); HEMATOCRIT 34.6 % (38.2-49.6); HEMOGLOBIN 11.5 g/dL (14.0-18.0); LYMPHOCYTES # (AUTO) 2.2 (1.0-3.2); MEAN CORPUSCULAR HEMOGLOBIN 29.8 pg (28-32); MEAN CORPUSCULAR HGB CONC 33.2 g/dL (31-35); MEAN CORPUSCULAR VOLUME 89.6 fL (81-99); MONOCYTES # (AUTO) 1.1 (0.2-0.8); MONOCYTES % 11.4 % (4.4-11.3); NEUTROPHILS # (AUTO) 6.2 (2.1-6.9); PLATELET COUNT 244 x10e3/uL (140-360); RED BLOOD COUNT 3.86 x10e6/uL (4.3-5.7); RED CELL DISTRIBUTION WIDTH 13.3 % (11.7-14.4)
[2022-07-11 06:05] LABS: ALBUMIN 2.3 g/dL (3.5-5.0); ALBUMIN/GLOBULIN RATIO 0.6 (0.8-2.0); ANION GAP 15.7 mmol/L (8-16); CALCIUM 8.7 mg/dL (8.4-10.2); CREATININE, SERUM 0.74 mg/dL (0.72-1.25); POTASSIUM 3.7 mmol/L (3.5-5.1)
[2022-07-11] MEDS: CLINDAMYCIN PHOS 900MG/ 50ML 50 ML IV SCH ×3 (06:17→21:03)
[2022-07-11 06:31] LABS: EOSINOPHILS % (MANUAL) 2 % (0-7); LYMPHOCYTES % (MANUAL) 21 % (19-48); MONOCYTES % (MANUAL) 8 % (3.4-9.0); NEUTROPHILS % (MANUAL) 68 % (40-74); NUCLEATED RED BLOOD CELLS 1; PLATELET ESTIMATE ADEQUATE; PLATELET MORPHOLOGY COMMENT NORMAL; RBC MORPHOLOGY COMMENT NORMAL
[2022-07-11 06:49] VITALS: BP 145/79
[2022-07-11 08:00] VITALS: BP 152/78
[2022-07-11 08:53] VITALS: BP 152/78
[2022-07-11] MEDS: ACYCLOVIR 200 MG CAP PO SCH ×4 (10:04→21:03)
[2022-07-11] MEDS: FLUCONAZOLE 400MG/200ML BAG 200 ML IV SCH (15:20)
[2022-07-11 16:10] VITALS: BP 148/78
[2022-07-11] MEDS: VENLAFAXINE HCL 75 MG CAPCR PO SCH (21:03)
[2022-07-11] MEDS: QUETIAPINE FUMARATE 100 MG TAB PO SCH (21:03)
[2022-07-12] VITALS (10 sets, daily range): BP systolic 115–156; BP diastolic 74–84
[2022-07-12] MEDS: INSULIN LISPRO 100 UNIT/1 ML 3ML VIAL SQ SCH ×5 (01:47→21:02)
[2022-07-12] MEDS: CLINDAMYCIN PHOS 900MG/ 50ML 50 ML IV SCH ×3 (05:04→20:56)
[2022-07-12] MEDS ORDERED: IOPAMIDOL 610MG/1ML 300 MG/ML VIAL IV ONE (07:03)
[2022-07-12] MEDS ORDERED: PHENAZOPYRIDINE HCL 100 MG TAB PO PRN (08:45)
[2022-07-12] MEDS ORDERED: ACETAMINOPHEN 1000 MG/100 ML IV PRN (08:45)
[2022-07-12] MEDS: ACYCLOVIR 200 MG CAP PO SCH ×4 (09:39→20:57)
[2022-07-12] MEDS ORDERED: TRAZODONE HCL100 MG PO (11:30)
[2022-07-12] MEDS ORDERED: HYDROXYZINE HCL25 MG PO (11:30)
[2022-07-12] MEDS ORDERED: DEPAKOTE ER250 MG PO (11:30)
[2022-07-12] MEDS: DIVALPROEX SODIUM 250 MG TAB...DR PO SCH ×2 (12:30→20:57)
[2022-07-12] MEDS: VENLAFAXINE HCL 75 MG CAPCR PO SCH (12:39)
[2022-07-12] MEDS: FLUCONAZOLE 400MG/200ML BAG 200 ML IV SCH (12:40)
[2022-07-12] MEDS ORDERED: FENTANYL CITRATE/PF 100MCG/2 ML INJ ONE (13:42)
[2022-07-12] MEDS ORDERED: MIDAZOLAM HCL 2 MG/2 ML VIAL ONE (13:42)
[2022-07-12] MEDS ORDERED: Morphine 10mg syringe 10 MG/ML INJ ONE (13:42)
[2022-07-12] MEDS: QUETIAPINE FUMARATE 100 MG TAB PO SCH (20:56)
[2022-07-12] MEDS: HYDROXYZINE HCL 25 MG TAB PO SCH (20:56)
[2022-07-12] MEDS: TRAZODONE HCL 50 MG TAB PO SCH (20:56)
[2022-07-13] VITALS (9 sets, daily range): BP systolic 126–148; BP diastolic 72–98
[2022-07-13] MEDS: CLINDAMYCIN PHOS 900MG/ 50ML 50 ML IV SCH ×3 (03:58→21:22)
[2022-07-13] MEDS: ACYCLOVIR 200 MG CAP PO SCH ×4 (08:53→22:31)
[2022-07-13] MEDS: VENLAFAXINE HCL 75 MG CAPCR PO SCH (08:54)
[2022-07-13] MEDS: ACETAMINOPHEN/CODEINE 300MG - 30MG TAB PO PRN ×3 (08:55→22:31)
[2022-07-13] MEDS: DIVALPROEX SODIUM 250 MG TAB...DR PO SCH ×2 (08:57→22:32)
[2022-07-13] MEDS: INSULIN LISPRO 100 UNIT/1 ML 3ML VIAL SQ SCH ×4 (09:00→22:35)
[2022-07-13] MEDS: FLUCONAZOLE 400MG/200ML BAG 200 ML IV SCH (12:49)
[2022-07-13] MEDS: ACETAMINOPHEN 325 MG TAB PO PRN (13:39)
[2022-07-13] MEDS: QUETIAPINE FUMARATE 100 MG TAB PO SCH (22:31)
[2022-07-13] MEDS: TRAZODONE HCL 50 MG TAB PO SCH (22:32)
[2022-07-13] MEDS: HYDROXYZINE HCL 25 MG TAB PO SCH (22:32)
[2022-07-14] VITALS (7 sets, daily range): BP systolic 131–151; BP diastolic 72–87
[2022-07-14] MEDS ORDERED: SODIUM CHLORIDE 0.9% 250ML 250 ML ONE (03:43)
[2022-07-14] MEDS: CLINDAMYCIN PHOS 900MG/ 50ML 50 ML IV SCH ×2 (04:36→12:23)
[2022-07-14] MEDS: INSULIN LISPRO 100 UNIT/1 ML 3ML VIAL SQ SCH ×4 (08:53→21:23)
[2022-07-14] MEDS: VENLAFAXINE HCL 75 MG CAPCR PO SCH (09:01)
[2022-07-14] MEDS: ACYCLOVIR 200 MG CAP PO SCH ×4 (09:01→21:13)
[2022-07-14] MEDS: DIVALPROEX SODIUM 250 MG TAB...DR PO SCH ×2 (12:23→23:32)
[2022-07-14] MEDS: FLUCONAZOLE 400MG/200ML BAG 200 ML IV SCH (13:18)
[2022-07-14] MEDS: ACETAMINOPHEN/CODEINE 300MG - 30MG TAB PO PRN ×2 (15:44→21:12)
[2022-07-14] MEDS ORDERED: MICAFUNGIN SODIUM 100 MG IV SCH (16:15)
[2022-07-14] MEDS: MICAFUNGIN SODIUM 100 MG in SODIUM CHLORIDE 0.9% 100 ML IV SCH (17:41)
[2022-07-14] MEDS: TRAZODONE HCL 50 MG TAB PO SCH (21:13)
[2022-07-14] MEDS: HYDROXYZINE HCL 25 MG TAB PO SCH (21:13)
[2022-07-14] MEDS: QUETIAPINE FUMARATE 100 MG TAB PO SCH (21:13)
[2022-07-15] VITALS (7 sets, daily range): BP systolic 119–151; BP diastolic 64–83
[2022-07-15] MEDS: INSULIN LISPRO 100 UNIT/1 ML 3ML VIAL SQ SCH ×4 (09:01→21:52)
[2022-07-15] MEDS: ACYCLOVIR 200 MG CAP PO SCH ×2 (09:02→12:14)
[2022-07-15] MEDS: VENLAFAXINE HCL 75 MG CAPCR PO SCH (09:02)
[2022-07-15] MEDS: DIVALPROEX SODIUM 250 MG TAB...DR PO SCH ×2 (12:14→23:26)
[2022-07-15] MEDS: MICAFUNGIN SODIUM 100 MG in SODIUM CHLORIDE 0.9% 100 ML IV SCH (17:25)
[2022-07-15] MEDS: HYDROXYZINE HCL 25 MG TAB PO SCH (21:50)
[2022-07-15] MEDS: TRAZODONE HCL 50 MG TAB PO SCH (21:50)
[2022-07-15] MEDS: QUETIAPINE FUMARATE 100 MG TAB PO SCH (21:50)
[2022-07-15] MEDS: ACETAMINOPHEN/CODEINE 300MG - 30MG TAB PO PRN (21:54)
[2022-07-16] VITALS: BP 131/75
[2022-07-16 04:00] VITALS: BP 120/74
[2022-07-16] MEDS: INSULIN LISPRO 100 UNIT/1 ML 3ML VIAL SQ SCH ×3 (08:30→16:36)
[2022-07-16 08:47] VITALS: BP 139/75
[2022-07-16 09:00] VITALS: BP 139/75
[2022-07-16] MEDS: VENLAFAXINE HCL 75 MG CAPCR PO SCH (09:00)
[2022-07-16] MEDS: DIVALPROEX SODIUM 250 MG TAB...DR PO SCH (12:17)
[2022-07-16 12:26] VITALS: BP 150/92
[2022-07-16] MEDS ORDERED: KEFLEX125 MG/5 M PO (14:44)
[2022-07-16] MEDS ORDERED: TYLENOL 3 PO (14:45)
[2022-07-16] MEDS ORDERED: DIFLUCAN100 MG PO (14:45)
[2022-07-16] MEDS: ACETAMINOPHEN/CODEINE 300MG - 30MG TAB PO PRN (16:33)
[2022-07-16] MEDS: MICAFUNGIN SODIUM 100 MG in SODIUM CHLORIDE 0.9% 100 ML IV SCH (17:00)
[2022-07-16 17:04] VITALS: BP 135/84
== END 2022-07-16 18:00 | disposition home health service (06) | DRG 872 ==
LOC: ER 07:01 → ERHOLD 11:15 → MED/SURG 19:26
PROVIDERS: ADMIT Internal Medicine; ATTEND Internal Medicine
PROC: 0T7D8ZZ Dilation of Urethra, Via Natural or Artificial Opening Endoscopic (ICD-10-PCS; 2022-07-12)
PROC: 0V95XZZ Drainage of Scrotum, External Approach (ICD-10-PCS; 2022-07-12)
PROC: BT1DZZZ Fluoroscopy of Right Kidney, Ureter and Bladder (ICD-10-PCS; principal; 2022-07-12 07:28)
DX: A41.9 Sepsis, unspecified organism (principal); E87.1 Hypo-osmolality and hyponatremia; N17.9 Acute kidney failure, unspecified; Z16.11 Resistance to penicillins; N39.0 Urinary tract infection, site not specified; N48.21 Abscess of corpus cavernosum and penis; B96.1 Klebsiella pneumoniae [K. pneumoniae] as the cause of diseases classified elsewhere; E11.9 Type 2 diabetes mellitus without complications; F31.9 Bipolar disorder, unspecified; R00.0 Tachycardia, unspecified; I10 Essential (primary) hypertension; F41.9 Anxiety disorder, unspecified; B96.89 Other specified bacterial agents as the cause of diseases classified elsewhere; N40.0 Benign prostatic hyperplasia without lower urinary tract symptoms; D64.9 Anemia, unspecified; N35.919 Unspecified urethral stricture, male, unspecified site; E78.5 Hyperlipidemia, unspecified; Z20.822 Contact with and (suspected) exposure to COVID-19; Z79.84 Long term (current) use of oral hypoglycemic drugs; Z79.4 Long term (current) use of insulin; Z87.891 Personal history of nicotine dependence
CPT/HCPCS: 36415; 74176; 74420; 76870; 80053; 80202; 81001; 82948; 83605; 85025; 85610; 85730; 87040; 87071; 87075; 87086; 87186; 87205; 88304; 93976; 96361; 96372; 99252; 99284; C1758; C1769; J0692; J0696; J1450; J2248; J2250; J2270; J2405; J3410; J7030; J7050